=== PATIENT | male | born 1995 | race American Indian/Alaskan Native ===

== ENCOUNTER 2020-03-01 02:37 | Emergency (ER) | payer SELFPAY ==
[2020-03-01 02:43] VITALS: BP 128/81
[2020-03-01] MEDS ORDERED: IBUPROFEN 600 MG TAB PO ONE (03:17)
[2020-03-01] MEDS ORDERED: AMOXICILLIN/K CLAV 875/125MG TAB PO ONE (03:17)
[2020-03-01] MEDS ORDERED: ACETAMINOPHEN 500 MG TAB PO ONE (03:17)
--- NOTE | 2020-03-01 03:22 | Emergency Department Report ---
ED General Adult HPI - General Chief complaint: Dental/Oral Stated complaint: TOOTHACHE Source: patient Mode of arrival: Ambulatory Limitations: No Limitations - History of Present Illness Initial comments: Patient is a 24-year-old -[place] male with no past medical history presents to the ED with complaint of acute onset persistent severe left mandibular premolar molar toothache with swollen gums and pain for the last 1 month, worse in the last 2 days. Patient states that he has been taking [id number] medication with no relief. Patient states that he has not followed up nor contacted any dentist for the same. Patient denies fever, chills, nausea, vomiting, sore throat, headache, dizziness, syncope, chest pain, shortness of breath, nasal and sinus congestion or change in vision. MD Complaint: left mandibular premolar and molar toothache; swollen left mandibular gums -: Sudden, month(s) (1) Location: mouth Radiation: non-radiation Severity scale (0 -10): 7 Quality: aching, sharp Consistency: constant Improves with: none Worsens with: eating Associated Symptoms: denies other symptoms. denies: confusion, chest pain, cough, diaphoresis, fever/chills, headaches, loss of appetite, malaise, nausea/vomiting, rash, shortness of breath, syncope, weakness Treatments Prior to Arrival: none - Related Data Previous Rx's Medication Instructions Recorded Last Taken Type Acetaminophen/Codeine [Tylenol #3] 1 tab PO Q6H PRN #20 tab 04/21/15 Unknown Rx Amoxicillin [Trimox CAP] 500 mg PO Q8H #30 capsule 04/21/15 Unknown Rx Fluticasone [Flonase] 2 spray NS QDAY #1 bottle 04/21/15 Unknown Rx Loratadine (Nf) [Claritin] 10 mg PO DAILY #30 tablet 04/21/15 Unknown Rx predniSONE [Deltasone] 40 mg PO QDAY #10 tab 04/21/15 Unknown Rx Amoxicillin/Potassium Clav 1 each PO Q12H #20 tablet 03/01/20 Unknown Rx [Augmentin 875-125 Tablet] Ketorolac [Toradol] 10 mg PO Q8H PRN #20 tablet 03/01/20 Unknown Rx traMADoL [Ultram] 50 mg PO Q6HR PRN #12 tablet 03/01/20 Unknown Rx Allergies Allergy/AdvReac Type Severity Reaction Status Date / Time No Known Allergies Allergy Verified 04/21/15 07:28 ED Review of Systems ROS: Stated complaint: TOOTHACHE Other details as noted in HPI Constitutional: denies: chills, fever Eyes: denies: eye pain, eye discharge, vision change ENT: dental pain (Painful left mandibular premolar and molar teeth), other (Swollen and painful left mandibular gums). denies: ear pain, throat pain Respiratory: denies: cough, shortness of breath, wheezing Cardiovascular: denies: chest pain, palpitations, edema, syncope Endocrine: no symptoms reported Gastrointestinal: denies: abdominal pain, nausea, vomiting, diarrhea Genitourinary: denies: urgency, dysuria Musculoskeletal: denies: back pain, joint swelling, arthralgia Skin: denies: rash, lesions Neurological: denies: headache, weakness, paresthesias Psychiatric: denies: anxiety, depression Hematological/Lymphatic: denies: easy bleeding, easy bruising ED Past Medical Hx - Past Medical History Previous Medical History?: No - Surgical History Past Surgical History?: No - Social History Smoking Status: Never Smoker Substance Use Type: None - Medications Home Medications: Home Medications Medication Instructions Recorded Confirmed Last Taken Type Acetaminophen/Codeine [Tylenol #3] 1 tab PO Q6H PRN #20 tab 04/21/15 Unknown Rx Amoxicillin [Trimox CAP] 500 mg PO Q8H #30 capsule 04/21/15 Unknown Rx Fluticasone [Flonase] 2 spray NS QDAY #1 bottle 04/21/15 Unknown Rx Loratadine (Nf) [Claritin] 10 mg PO DAILY #30 tablet 04/21/15 Unknown Rx predniSONE [Deltasone] 40 mg PO QDAY #10 tab 04/21/15 Unknown Rx Amoxicillin/Potassium Clav 1 each PO Q12H #20 tablet 03/01/20 Unknown Rx [Augmentin 875-125 Tablet] Ketorolac [Toradol] 10 mg PO Q8H PRN #20 tablet 03/01/20 Unknown Rx traMADoL [Ultram] 50 mg PO Q6HR PRN #12 tablet 03/01/20 Unknown Rx ED Physical Exam - General Limitations: No Limitations General appearance: alert, in no apparent distress - Head Head exam: Present: atraumatic, normocephalic, normal inspection - Eye Eye exam: Present: normal appearance, PERRL, EOMI Pupils: Present: normal accommodation - ENT ENT exam: Present: normal exam, mucous membranes moist, TM's normal bilaterally, normal external ear exam, other (Swollen, severely tender left mandibular gingiva with severely tender premolar and molar teeth) - Neck Neck exam: Present: normal inspection, full ROM. Absent: tenderness, meningismus, lymphadenopathy, thyromegaly - Respiratory Respiratory exam: Present: normal lung sounds bilaterally. Absent: respiratory distress, wheezes, rales, rhonchi, stridor, chest wall tenderness, accessory muscle use, prolonged expiratory - Cardiovascular Cardiovascular Exam: Present: regular rate, normal rhythm, normal heart sounds. Absent: systolic murmur, diastolic murmur, rubs, gallop - GI/Abdominal GI/Abdominal exam: Present: soft, normal bowel sounds. Absent: tenderness, guarding, rebound, hyperactive bowel sounds, hypoactive bowel sounds, organomegaly - Extremities Exam Extremities exam: Present: normal inspection, full ROM, normal capillary refill - Back Exam Back exam: Present: normal inspection, full ROM. Absent: tenderness, CVA tenderness (R), muscle spasm, paraspinal tenderness, vertebral tenderness - Neurological Exam Neurological exam: Present: alert, oriented X3, CN II-XII intact, normal gait, reflexes normal - Psychiatric Psychiatric exam: Present: normal affect, normal mood - Skin Skin exam: Present: warm, dry, intact, normal color. Absent: rash ED Course Vital Signs 03/01/20 02:41 Temperature 98.4 F Pulse Rate 90 Respiratory 18 Rate Blood Pressure 128/81 O2 Sat by Pulse 97 Oximetry ED Medical Decision Making - Medical Decision Making This is a 24-year-old -[place] male with no past medical history presents to the ED with complaint of acute onset persistent severe left mandibular premolar molar toothache with swollen gums and pain for the last 1 month, worse in the last 2 days. Patient states that he has been taking vray-weo-[id number] medication with no relief. Patient states that he has not followed up nor contacted any dentist for the same. In the ED, patient is alert and oriented x3 and is not in distress. Patient was treated for pain and given initial oral antibiotics in the ED. Patient was discharged home on medications including antibiotics and pain medications and advised to follow-up with his dentist in 7 to 10 days for reevaluation. Patient was advised to return to the ED immediately if symptoms get worse. - Differential Diagnosis Dental abscess; gingivitis; dental caries Critical care attestation.: If time is entered above; I have spent that time in minutes in the direct care of this critically ill patient, excluding procedure time. ED Disposition Clinical Impression: Dental abscess, Acute gingivitis, Dental caries Disposition: TO HOME OR SELFCARE Is pt being admited?: No Does the pt Need Aspirin: No Condition: Stable Instructions: Dental Abscess (ED), Gingivitis (ED) Additional Instructions: Take medication with food, drink plenty of fluids and follow-up with your dentist in 7 to 10 days for reevaluation. Return to the ED immediately if symptoms get worse. Prescriptions: Amoxicillin/Potassium Clav [Augmentin 875-125 Tablet] 1 each PO Q12H #20 tablet Ketorolac [Toradol] 10 mg PO Q8H PRN #20 tablet PRN Reason: Pain traMADoL [Ultram] 50 mg PO Q6HR PRN #12 tablet PRN Reason: Pain Referrals: [facility] [Outside] - 3-5 Days Time of Disposition: 03:19 Print Language: CHINESE
== END 2020-03-01 04:14 | disposition home or self-care (01) ==
LOC: ED 02:37
DX: K04.7 Periapical abscess without sinus (principal); K02.9 Dental caries, unspecified; K05.00 Acute gingivitis, plaque induced; Z79.2 Long term (current) use of antibiotics; Z79.899 Other long term (current) drug therapy
CPT/HCPCS: 99282

== ENCOUNTER 2022-05-27 20:33 | Emergency (ER) | payer SELFPAY ==
[2022-05-27 22:44] VITALS: BP 132/72
--- NOTE | 2022-05-28 07:58 | XRay Report ---
CHEST 2 VIEWS INDICATION / CLINICAL INFORMATION: Chest pain. COMPARISON: 2 views of the chest from 04/21/2015. FINDINGS: SUPPORT DEVICES: None. HEART / MEDIASTINUM: No significant abnormality. LUNGS / PLEURA: No significant pulmonary abnormality. No significant pleural effusion. No pneumothora x. ADDITIONAL FINDINGS: No significant additional findings. IMPRESSION: 1. No acute abnormality of the chest. Signer Name: Gil Wilkinson MD Signed: 05/28/2022 7:54 AM Workstation Name: [id number]
--- NOTE | 2022-05-28 08:49 | Emergency Department Report ---
ED Fever HPI - General Chief Complaint: Fever Stated Complaint: FEVER/SWEATING PUI?: Yes Time Seen by Provider: 05/28/22 06:35 Source: patient Exam Limitations: no limitations - History of Present Illness Timing/Duration: yesterday Fever Severity/Quality: subjective Associated Symptoms: muscle aches. denies: denies symptoms, abdominal pain, chest pain, confusion, cough, diaphoresis, headache, nausea/vomiting, rash, shortness of breath, sore throat, stiff neck, syncope, weakness, other ED Review of Systems ROS: Stated complaint: FEVER/SWEATING Other details as noted in HPI Comment: All other systems reviewed and negative ED Past Medical Hx - Past Medical History Previous Medical History?: No - Surgical History Past Surgical History?: No - Family History Family history: no significant - Social History Smoking Status: Current Every Day Smoker Substance Use Type: None - Medications Home Medications: Home Medications Medication Instructions Recorded Confirmed Last Taken Type Acetaminophen/Codeine [Tylenol #3] 1 tab PO Q6H PRN #20 tab 04/21/15 Unknown Rx Amoxicillin [Trimox CAP] 500 mg PO Q8H #30 capsule 04/21/15 Unknown Rx Fluticasone [Flonase] 2 spray NS QDAY #1 bottle 04/21/15 Unknown Rx Loratadine (Nf) [Claritin] 10 mg PO DAILY #30 tablet 04/21/15 Unknown Rx predniSONE [Deltasone] 40 mg PO QDAY #10 tab 04/21/15 Unknown Rx Amoxicillin/Potassium Clav 1 each PO Q12H #20 tablet 03/01/20 Unknown Rx [Augmentin 875-125 Tablet] Ketorolac [Toradol] 10 mg PO Q8H PRN #20 tablet 03/01/20 Unknown Rx traMADoL [Ultram] 50 mg PO Q6HR PRN #12 tablet 03/01/20 Unknown Rx ED Physical Exam - General Limitations: No Limitations General appearance: alert, in no apparent distress - Head Head exam: Present: atraumatic, normocephalic - Eye Eye exam: Present: normal appearance - ENT ENT exam: Present: mucous membranes moist - Neck Neck exam: Present: normal inspection - Respiratory Respiratory exam: Present: normal lung sounds bilaterally. Absent: respiratory distress - Cardiovascular Cardiovascular Exam: Present: regular rate, normal rhythm. Absent: systolic murmur, diastolic murmur, rubs, gallop - GI/Abdominal GI/Abdominal exam: Present: soft, normal bowel sounds - Rectal Rectal exam: Present: deferred - Extremities Exam Extremities exam: Present: normal inspection - Back Exam Back exam: Present: normal inspection - Neurological Exam Neurological exam: Present: alert, oriented X3 - Psychiatric Psychiatric exam: Present: normal affect, normal mood - Skin Skin exam: Present: warm, dry, intact, normal color. Absent: rash ED Course Vital Signs 05/27/22 22:41 Temperature 98.7 F Pulse Rate 71 Respiratory 18 Rate Blood Pressure 132/72 [Left] O2 Sat by Pulse 95 Oximetry ED Medical Decision Making - Radiology Data Radiology results: report reviewed, image reviewed nap - Medical Decision Making Vital Signs 05/27/22 22:41 Temperature 98.7 F Pulse Rate 71 Respiratory 18 Rate Blood Pressure 132/72 [Left] O2 Sat by Pulse 95 Oximetry xray noted lungs cta mild throat redness; no exudates conjunctival redness no coughing taking po abd snt pt updated on covid rapid tests and that we do not do them in ER. If he is shanel rned he should get rapid test on dc pt ambulatory non ill non toxic dc home - Differential Diagnosis viral illness Critical care attestation.: If time is entered above; I have spent that time in minutes in the direct care of this critically ill patient, excluding procedure time. ED Disposition Clinical Impression: Viral illness Disposition: 01 HOME / SELF CARE / HOMELESS Is pt being admited?: No Does the pt Need Aspirin: No Condition: Stable Instructions: Viral Illness, Adult Additional Instructions: over the counter motrin or tylenol for pain or fever stay well hydrated with water follow up with pcp in 48 hours if persists referral below diet and activity as tolerated RAPID COVID TEST IF YOU ARE CONCERNED- ER DOES NOT DO THEM Referrals: COLLINS SONG MD [Staff Physician] - 3-5 Days Forms: Work/School Release Form(ED) Time of Disposition: 08:53
== END 2022-05-28 09:00 | disposition home or self-care (01) ==
LOC: ED 20:33
DX: B34.9 Viral infection, unspecified (principal); R50.9 Fever, unspecified; F17.200 Nicotine dependence, unspecified, uncomplicated; Z79.899 Other long term (current) drug therapy
CPT/HCPCS: 71046; 99283